=== PATIENT | male | born 2000 | race African-American/Black ===

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

== ENCOUNTER 2021-08-05 09:16 | Emergency (ER) | payer OTHER ==
[~2021-08-05] VITALS: Ht 180.3 cm; Wt 68.0 kg
[2021-08-05 09:19] VITALS: BP 143/74
[2021-08-05] MEDS ORDERED: ACYCLOVIR 200MG CAPSULE PO ONE (09:30)
[2021-08-05] MEDS ORDERED: GABA300C MT (09:40)
[2021-08-05] MEDS ORDERED: ACYC200C31 MT (09:40)
[2021-08-05] MEDS ORDERED: DIPH28.34 TP (09:40)
[2021-08-05] MEDS ORDERED: ACYCLOVIR 400 MG TABLET PO NR (09:45)
== END 2021-08-05 10:00 | disposition home or self-care (01) ==
LOC: ER 09:16
DX: B01.9 Varicella without complication (principal)
CPT/HCPCS: 99283

== ENCOUNTER 2021-11-16 09:52 | Emergency (ER) | payer OTHER ==
[~2021-11-16] VITALS: Ht 182.9 cm; Wt 75.0 kg
[~2021-11-16 09:52] MED LIST: ACYC200C31 MT; DIPH28.34 TP; GABA300C MT
[2021-11-16 09:54] VITALS: BP 131/92
== END 2021-11-16 12:10 | disposition left against medical advice (07) ==
LOC: ER 10:09
DX: M54.50 Low back pain, unspecified (principal); V43.52XA Car driver injured in collision with other type car in traffic accident, initial encounter; Y93.89 Activity, other specified; Y92.89 Other specified places as the place of occurrence of the external cause
CPT/HCPCS: 99283

== ENCOUNTER 2023-10-11 07:58 | Emergency (ER) | payer MEDICAID, OTHER ==
[~2023-10-11] VITALS: Ht 180.3 cm; Wt 78.0 kg
[~2023-10-11 07:58] MED LIST changes: +IBUP-2028 MT
[2023-10-11 08:11] VITALS: O2SAT 96
[2023-10-11] MEDS: ACETAMINOPHEN 325MG TABLET PO ONE (09:45)
[2023-10-11] MEDS: IBUPROFEN 400MG TABLET PO ONE (09:45)
[2023-10-11 10:00] VITALS: BP 112/68; PULSE 79; RESP 16; TEMP 98.5
== END 2023-10-11 10:47 | disposition home or self-care (01) ==
LOC: ER 07:58
DX: M79.675 Pain in left toe(s) (principal)
CPT/HCPCS: 73660; 99283